=== PATIENT | male | born 1955 | race Caucasian/White ===

== ENCOUNTER 2016-08-16 09:35 | Emergency (ER) | payer BC ==
[~2016-08-16] VITALS: Ht 185.4 cm; Wt 135.1 kg
[2016-08-16 09:37] VITALS: TEMP 36.3; Ht 185.4 cm; Wt 135.1 kg
[2016-08-16] MEDS ORDERED: SODIUM CHLORIDE 0.9% 1000ML 1,000 ML IV STA (09:41)
[2016-08-16] MEDS ORDERED: ONDANSETRON INJ 2 MG/ML 2 ML VIAL IV STA (09:41)
[2016-08-16] MEDS ORDERED: HYDROmorphone INJ 1 MG/ML SYR IV STA (09:41)
--- NOTE | 2016-08-16 09:50 | EMERGENCY ROOM VISIT NOTE ---
History Report prepared by Crystal: Rebecca Robles Under the Supervision of: Dr. Brisa Rhoades M.D. First contact with patient: 09:41 Chief Complaint: BACK PAIN Stated Complaint: BACK PAIN POSSIBLE KIDNEY STONE History of Present Illness The patient is a 61 year old male who presents to the Emergency Room with complaints of constant right sided flank pain beginning this morning. The patient states that he has a history of kidney stones and passed one 15 years ago but was not seen by a doctor. He reports that his pain today came on suddenly. The patient states that standing helps the pain and sitting worsens it. He notes that when he sits down he gets shooting pain across his lower back. He denies any trouble urinating, fevers, hematuria, changes in bowel movements, history of heart disease, history of kidney problems. Source of History: patient Onset: this morning Position: other (right flank) Quality: other (shooting) Timing: constant Modifying Factors (Worsening): other (sitting) Modifying Factors (Relieving): other (standing) Associated Symptoms: No fevers, No urinary symptoms Note: He denies any changes in bowel movements, history of heart disease, history of kidney problems. Review of Systems See HPI for pertinent positives & negatives. A total of 10 systems reviewed and were otherwise negative. Past Medical & Surgical Medical Problems: (1) Kidney stone Family History No pertinent family history stated. Social History Smoking Status: Never Smoker Marital Status: Housing Status: lives with significant other Occupation Status: employed Current/Historical Medications Scheduled Ascorbic Acid (Vitamin C), 1,000 MG PO DAILY Cyanocobalamin (Vitamin B-12), 200 MCG PO DAILY Ginseng (Gin-Zing), 100 MG PO Q2D Scheduled PRN Hydrocodone/Acetaminophen 5MG/325MG ([place] 5MG/325MG), 1 TABLET PO q4-6 PRN for Pain Allergies Coded Allergies: BEE STING (Unverified Allergy, Unknown, ., 08/16/16) Physical Exam Vital Signs Date Time Temp Pulse Resp B/P (MAP) Pulse Ox O2 Delivery O2 Flow Rate FiO2 08/16/16 12:10 74 20 180/88 97 08/16/16 10:19 76 08/16/16 10:18 75 20 157/81 94 Room Air 08/16/16 09:37 36.3 70 18 197/95 98 Room Air Physical Exam Vital signs reviewed. General: Well-appearing 61-year-old male, in no significant distress. HEENT: No scleral icterus, PERRLA, neck supple. Atraumatic. Cardiovascular: Regular rate and rhythm, no extra sounds. Pulmonary: Clear to auscultation bilaterally, normal work of breathing. Abdomen: Soft, nontender, nondistended, positive bowel sounds. Musculoskeletal: Atraumatic, no peripheral edema. Mild right CVA tenderness. Neurologic: Patient awake alert and oriented x 3 Skin: Warm, dry, no rash Medical Decision & Procedures ER Provider Diagnostic Interpretation: CT results as stated below per my review and radiologist interpretation: CT SCAN OF THE ABDOMEN AND PELVIS WITHOUT CONTRAST FINDINGS: Lower chest: There is a linear opacity within the right lower lobe with adjacent tree-in-bud opacities. The findings are likely combination of postinflammatory change and atelectasis. There is also mucoid impaction. Liver: The unenhanced liver is normal in size, contour, and attenuation. There is no intrahepatic biliary ductal dilatation. Gallbladder: Unremarkable. Spleen: Normal in size and attenuation. Pancreas: Unremarkable. Adrenal glands: Unremarkable. Kidneys: There is a 2 mm lower pole right renal calculus. There is a 4 mm upper pole left renal calculus. There is a 4 mm proximal right ureteral calculus with minor secondary obstructive changes. Bowel: There are no transition zones indicate bowel obstruction. There is no acute diverticulitis. The appendix appears normal. Peritoneum: There is no intraperitoneal free air or abdominal ascites. Vasculature: The abdominal aorta is normal in course and caliber. Adenopathy: None. Pelvic viscera: The bladder, and pelvic viscera are unremarkable. Skeletal structures: No destructive osseous lesions are seen. IMPRESSION: 1. Bilateral nephrolithiasis 2. 4 mm proximal right ureteral calculus with mild secondary obstructive changes 3. Right lower lobe mucoid impaction with adjacent atelectasis and tree-in-bud opacities likely postinflammatory Electronically signed by: Riky Martino M.D. 08/16/2016 11:00 AM Dictated Date/Time: 08/16/2016 10:56 AM Laboratory Results 08/16/16 10:00 Red Blood Count 5.00, Mean Corpuscular Volume 87.0, Mean Corpuscular Hemoglobin 29.0, Mean Corpuscular Hemoglobin Concent 33.3, Mean Platelet Volume 9.8, Neutrophils (%) (Auto) 78.9, Lymphocytes (%) (Auto) 15.1, Monocytes (%) (Auto) 4.7, Eosinophils (%) (Auto) 0.8, Basophils (%) (Auto) 0.2, Neutrophils # (Auto) 8.31, Lymphocytes # (Auto) 1.59, Monocytes # (Auto) 0.50, Eosinophils # (Auto) 0.08, Basophils # (Auto) 0.02 08/16/16 10:00 Test 08/16/16 10:00 White Blood Count 10.53 K/uL (4.8-10.8) Red Blood Count 5.00 M/uL (4.7-6.1) Hemoglobin 14.5 g/dL (14.0-18.0) Hematocrit 43.5 % (42-52) Mean Corpuscular Volume 87.0 fL (80-100) Mean Corpuscular Hemoglobin 29.0 pg (25-34) Mean Corpuscular Hemoglobin Concent 33.3 g/dl (32-36) Platelet Count 245 K/uL (130-400) Mean Platelet Volume 9.8 fL (7.4-10.4) Neutrophils (%) (Auto) 78.9 % Lymphocytes (%) (Auto) 15.1 % Monocytes (%) (Auto) 4.7 % Eosinophils (%) (Auto) 0.8 % Basophils (%) (Auto) 0.2 % Neutrophils # (Auto) 8.31 K/uL (1.4-6.5) Lymphocytes # (Auto) 1.59 K/uL (1.2-3.4) Monocytes # (Auto) 0.50 K/uL (0.11-0.59) Eosinophils # (Auto) 0.08 K/uL (0-0.5) Basophils # (Auto) 0.02 K/uL (0-0.2) RDW Standard Deviation 42.5 fL (36.4-46.3) RDW Coefficient of Variation 13.4 % (11.5-14.5) Immature Granulocyte % (Auto) 0.3 % Immature Granulocyte # (Auto) 0.03 K/uL (0.00-0.02) Urine Color DK YELLOW Urine Appearance CLEAR (CLEAR) Urine pH 5.5 (4.5-7.5) Urine Specific [place] 1.023 (1.000-1.030) Urine Protein NEG (NEG) Urine Glucose (UA) NEG (NEG) Urine Ketones NEG (NEG) Urine Occult Blood 3+ (NEG) Urine Nitrite NEG (NEG) Urine Bilirubin NEG (NEG) Urine Urobilinogen NEG (NEG) Urine Leukocyte Esterase NEG (NEG) Urine WBC (Auto) 1-5 /hpf (0-5) Urine RBC (Auto) >30 /hpf (0-4) Urine Hyaline Casts (Auto) 1-5 /lpf (0-5) Urine Epithelial Cells (Auto) 0-5 /lpf (0-5) Urine Bacteria (Auto) NEG (NEG) Anion Gap 7.0 mmol/L (3-11) Est Creatinine Clear Calc Drug Dose 101.7 ml/min Estimated GFR () 83.5 Estimated GFR (Non- 72.1 BUN/Creatinine Ratio 12.0 (10-20) Calcium Level 8.9 mg/dl (8.5-10.1) Total Bilirubin 0.4 mg/dl (0.2-1) Direct Bilirubin 0.1 mg/dl (0-0.2) Aspartate Amino Transf (AST/SGOT) 11 U/L (15-37) Alanine Aminotransferase (ALT/SGPT) 24 U/L (12-78) Alkaline Phosphatase 74 U/L (45-117) Total Protein 7.7 gm/dl (6.4-8.2) Albumin 4.2 gm/dl (3.4-5.0) Laboratory results per my review. Medications Administered Medications (Trade) Dose Ordered Sig/Raegan Route Start Time Stop Time Status Last Admin Dose Admin Sodium Chloride 1,000 ml @ 999 mls/hr Q1H1M STAT IV 08/16/16 09:41 08/16/16 10:41 DC 08/16/16 10:17 999 MLS/HR ED Course 0941: Past medical records reviewed. The patient was evaluated in room B2. A complete history and physical examination was performed. 0941: Zofran Inj 4mg IV, Dilaudid Inj 1mg IV, Sodium Chloride 1000 ml @ 999 mls/ hr IV. 1155: Upon reevaluation, the patient appeared to have improvement of his symptoms. I discussed findings with the patient. He verbalized agreement of the treatment plan. The patient was discharged home. Medical Decision Differential diagnosis: Etiologies such as renal colic, appendicitis, diverticulitis, mesenteric ischemia, aortic pathology, infections, inflammatory bowel disease, PUD, biliary pathology, UTI, as well as others were entertained. Blood Pressure Screening: Patient was found to have an elevated blood pressure and was referred to their primary doctor for recheck and further treatment. Medication Reconciliation: I attest that I have personally reviewed the patient' s current medication list. This patient was evaluated and appeared to be in no significant distress. IV access was obtained and laboratory work was drawn. Patient was ordered IV hydration, IV Dilaudid and Zofran. The patient declined the need for any analgesics. CT scan abdomen and pelvis was performed and reveals an obstructing 4 mm proximal right ureteral stone. Patient was informed of the findings. UA is indicative of blood, no infection. He was feeling well. Patient was discharged with a prescription for [place] 14 tablets, advised to take one every 4-6 hours as needed for severe pain. He will not drive or use Tylenol with this medication. He'll follow-up with urology for reevaluation in 7-10 days and return to the ER for worsening of symptoms or any medical concerns. Impression Primary Impression: Right kidney stone Scribe Attestation The scribe's documentation has been prepared under my direction and personally reviewed by me in its entirety. I confirm that the note above accurately reflects all work, treatment, procedures, and medical decision making performed by me. Departure Information Dispostion Home / Self-Care Prescriptions Hydrocodone/Acetaminophen 5MG/325MG ([place] 5MG/325MG) Tab 1 TABLET PO q4-6 Y for Pain, #14 TAB Prov: Brisa Rhoades M.D. 08/16/16 Referrals Vik Hargrove M.D. (PCP) Forms HOME CARE DOCUMENTATION FORM, IMPORTANT VISIT INFORMATION Patient Instructions [facility] Additional Instructions Diagnosis: Kidney stone Drink plenty of clear fluids. Ibuprofen 600 mg every 6 hours as needed for pain with food. [place] one tablet every 4-6 hours as needed for more severe pain. Follow-up with urology, Dr. Sousa within the next 7-10 days. Return to the emergency department for worsening of symptoms or any medical concerns.
[2016-08-16 10:17] LABS: BASO % 0.2 %; BASO ABS # 0.02 K/uL (0-0.2); COMPLETE YES; EOS % 0.8 %; HEMATOCRIT 43.5 % (42-52); IG% 0.3 %; LYMPH % 15.1 %; LYMPH ABS # 1.59 K/uL (1.2-3.4); MEAN CORPUSCULAR HGB CONC 33.3 g/dl (32-36); MEAN PLATELET VOLUME 9.8 fL (7.4-10.4); MONO % 4.7 %; NEUT % 78.9 %; PLATELET COUNT 245 K/uL (130-400); WHITE BLOOD COUNT 10.53 K/uL (4.8-10.8)
[2016-08-16 10:33] LABS: CALCIUM 8.9 mg/dl (8.5-10.1); CREATININE 1.1 mg/dl (0.60-1.40); POTASSIUM 4.1 mmol/L (3.5-5.1)
[2016-08-16] MEDS ORDERED: GINS100C2 PO (10:38)
[2016-08-16] MEDS ORDERED: CYAN100T PO (10:38)
[2016-08-16] MEDS ORDERED: ASCO10003 PO (10:38)
[2016-08-16 10:50] LABS: MANUAL MICROSCOPIC REQUIRED? NO; REVIEW REQ? NO; URINE APPEARANCE CLEAR (CLEAR); URINE BILIRUBIN NEG (NEG); URINE COLOR DK YELLOW; URINE EPITHELIAL CELL AUTO 0-5 /lpf (0-5); URINE NITRITE NEG (NEG); URINE PH 5.5 (4.5-7.5); URINE SPECIFIC GRAVITY 1.023 (1.000-1.030); UROBILINOGEN NEG (NEG); ZZUR CULT IF INDIC CLEAN CATCH NO
--- NOTE | 2016-08-16 11:01 | DIAGNOSTIC IMAGING REPORT ---
CT SCAN OF THE ABDOMEN AND PELVIS WITHOUT CONTRAST CLINICAL HISTORY: right flank pain COMPARISON STUDY: No previous studies for comparison. TECHNIQUE: CT scan of the abdomen and pelvis was performed from the lung bases to the proximal femurs. Images are reviewed in the axial, sagittal, and coronal planes. IV contrast was not administered for this examination. CT DOSE: 1844.16 mGy.cm FINDINGS: Lower chest: There is a linear opacity within the right lower lobe with adjacent tree-in-bud opacities. The findings are likely combination of postinflammatory change and atelectasis. There is also mucoid impaction. Liver: The unenhanced liver is normal in size, contour, and attenuation. There is no intrahepatic biliary ductal dilatation. Gallbladder: Unremarkable. Spleen: Normal in size and attenuation. Pancreas: Unremarkable. Adrenal glands: Unremarkable. Kidneys: There is a 2 mm lower pole right renal calculus. There is a 4 mm upper pole left renal calculus. There is a 4 mm proximal right ureteral calculus with minor secondary obstructive changes. Bowel: There are no transition zones indicate bowel obstruction. There is no acute diverticulitis. The appendix appears normal. Peritoneum: There is no intraperitoneal free air or abdominal ascites. Vasculature: The abdominal aorta is normal in course and caliber. Adenopathy: None. Pelvic viscera: The bladder, and pelvic viscera are unremarkable. Skeletal structures: No destructive osseous lesions are seen. IMPRESSION: 1. Bilateral nephrolithiasis 2. 4 mm proximal right ureteral calculus with mild secondary obstructive changes 3. Right lower lobe mucoid impaction with adjacent atelectasis and tree-in-bud opacities likely postinflammatory Electronically signed by: Riky Martino M.D. 08/16/2016 11:00 AM Dictated Date/Time: 08/16/2016 10:56 AM
[2016-08-16] MEDS ORDERED: HYDR-5688 PO (11:55)
[2016-08-16 12:10] VITALS: BP 180/88; PULSE 74; O2SAT 97
== END 2016-08-16 12:14 | disposition home or self-care (01) ==
LOC: C.EDB 09:35
DX: N20.2 Calculus of kidney with calculus of ureter (principal)